=== PATIENT | female | born 1960 | race Caucasian/White ===

== ENCOUNTER 2020-04-23 09:30 | Emergency (ER) | payer OTHER, SELFPAY ==
--- NOTE | ~2020-04-23 | XR_ITS ---
EXAMINATION: XR knee LT min 4V DATE: 04/23/2020 09:58 INDICATION: Left knee pain post injury TECHNIQUE: Anteroposterior, 2 oblique and crosstable lateral views of the affected knee were obtained COMPARISON: None. FINDINGS: Alignment is normal. No fracture. No joint effusion/layering lipohemarthrosis. At least mild tricomp artmental osteoarthritis with small marginal osteophytes in all 3 compartments and mild joint space n arrowing in the medial compartment which could be underestimated on nonweightbearing imaging. Heterot opic ossicle versus loose osteochondral body extends along the cephalad margin of the patella. Multip le subcutaneous varicosities about the knee and extending along the anterior distal thigh. IMPRESSION: 1. No left knee joint effusion or acute osseous abnormality. Reviewed, dictated and finalized at location A. ISHER PLASTICOATER
[2020-04-23 09:36] VITALS: BP 152/91; PULSE 91; RESP 16; TEMP 36.1; O2SAT 99
--- NOTE | 2020-04-23 09:42 | ED.GENADULT ---
HPI - General Adult General Chief complaint: Extremity Injury, Lower Stated complaint: lt knee injury Time Seen by Provider: 04/23/20 09:42 Source: patient Mode of arrival: ambulatory Limitations: no limitations History of Present Illness HPI narrative: 59-year-old female patient presents to the [facility] with complaints of left knee pain. Patient states that she slipped last night going into the house and states she did not fall but states that her left leg kind of went towards the back and she twisted her left knee. Patient states she did take some Josué aspirin last night as well some ibuprofen today for the pain. Patient states she has been able to walk on it but states that causes her to limp. Patient denies any numbness or tingling down to the leg ankle or toes. Related Data Home Medications Medication Instructions Recorded Confirmed No Home Medications 04/23/20 04/23/20 Allergies Allergy/AdvReac Type Severity Reaction Status Date / Time No Known Allergies Allergy Unverified 10/31/16 18:46 Review of Systems Review of Systems: Narrative: CONSTITUTIONAL: Denies fever, chills, or sweats. EYES: Denies visual changes, redness, or discharge. ENT: Denies rhinorrhea, congestion, sore throat, or otalgia. CARDIOVASCULAR: Denies chest pain, palpitations, or edema. RESPIRATORY: Denies cough or dyspnea. GASTROINTESTINAL: Denies abdominal pain, nausea, vomiting, or diarrhea. GENITOURINARY: Denies dysuria or hematuria. SKIN: Denies rash or itching. MUSCULOSKELETAL: Denies back pain, joint pain, or myalgia. Positive left knee pain NEUROLOGIC: Denies headache, numbness, or weakness. PSYCHIATRIC: Denies anxiety or depression. [facility] Surgical History Surgical History (Updated 04/23/20 @ 09:42 by MALCOLM Berry) History of orthopedic surgery Spurs removed from both feet Comments At the time of my signature I agree with nursing past medical history, surgical, social, and family history. There is no relevant family history pertinent to the presenting complaint. Exam Narrative: Exam Narrative: GENERAL: Well-appearing, well-nourished, and in no acute distress. HEAD: Normocephalic, atraumatic. EYES: PERRLA and EOMI. ENT: Nares clear, no rhinorrhea or epistaxis. Mucous membranes moist. NECK: Supple. No lymphadenopathy CHEST: Clear to auscultation. No respiratory distress. HEART: Regular rate and rhythm. No murmur heard. Normal peripheral pulses. ABDOMEN: Soft, nontender, nondistended, normal active bowel sounds. EXTREMITIES: Patient is able to bear weight and ambulate but has limping and pain to the left knee. No surface trauma, STS, or obvious effusion. No overlying erythema or warmth. The L knee is without obvious asymmetry or deformity when compared to the R knee. Patient is able to do deep knee bend with symmetry but has pain with this motion, no pain with fully extend knee, pain with internal rotation and no pain with external rotation. No tendernss to palpation of the patella, no effusion or ballottement. No tenderness over the infrapatellar tendon. No tenderness over the medial or lateral joint lone ot the medial or lateral tibial plateaus. no tenderness over the proximal fibular head. no tenderness, fullness, or mass of the popliteal fossa. No quadriceps tenderness. No laxity of the ACL, PCL, MCL, or LCL. Tenderness noted over the ACL area. No collateral ligament laxity to valgus or vargus stress. Negative matt/drawer sign. Negative Zach. Negative Apley compression and/or distraction. Distal motor and neurovascular status intact. SKIN: Warm, dry, no rash. NEURO: No focal deficits. Alert and oriented x3. Course Reevaluation(s) Reevaluation #1: Reevaluated patient after her x-ray had resulted. Discussed with her that her x-ray does not show any acute fracture or underlying injury at this time. Discussed with her that she does have some osteoarthritis to the knee. Discussed with her I do believe she most li
== END 2020-04-23 10:18 | disposition home or self-care (01) ==
PROVIDERS: Emergency Provider Nurse Practitioner Family
DX: M23.92 Unspecified internal derangement of left knee (principal)
CPT/HCPCS: 73564; 99203; G0463

== ENCOUNTER 2021-06-22 15:47 | Emergency (ER) | payer OTHER, SELFPAY ==
[2021-06-22 15:58] VITALS: BP 129/51; PULSE 91; RESP 18; TEMP 36.4; O2SAT 100
--- NOTE | 2021-06-22 16:00 | ED.SKABFB ---
HPI - Skin/Abscess/Foreign Bdy General Chief complaint: Skin/Abscess/Foreign Body Stated complaint: Rash on back of right leg Time Seen by Provider: 06/22/21 16:00 Source: patient Mode of arrival: ambulatory Limitations: no limitations History of Present Illness HPI narrative: 60-year-old female presents with complaint of redness, warmth, tenderness to right posterior leg. First noticed about 2 days ago. Only injury she remembers is dropping a case of motor oil onto her right lower leg. Did not have any pain at that time. 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 Denies itching. Denies use of new products that may cause allergic reaction. All systems reviewed and negative except as noted above. Related Data Allergies Allergy/AdvReac Type Severity Reaction Status Date / Time No Known Allergies Allergy Verified 06/22/21 15:57 Review of Systems Review of Systems: CONSTITUTIONAL: Denies fever, chills, or sweats. EYES: Denies visual changes, redness, or discharge. ENT: Denies rhinorrhea, congestion, sore throat, or otalgia. CARDIOVASCULAR: Denies chest pain, palpitations, or edema. RESPIRATORY: Denies cough or dyspnea. GASTROINTESTINAL: Denies abdominal pain, nausea, vomiting, or diarrhea. GENITOURINARY: Denies dysuria or hematuria. SKIN: Denies rash or itching. Redness, warmth, tenderness to right posterior leg. MUSCULOSKELETAL: Denies back pain, joint pain, or myalgia. NEUROLOGIC: Denies headache, numbness, or weakness. PSYCHIATRIC: Denies anxiety or depression. All other systems reviewed are negative, except as documented in HPI. [facility] Surgical History Surgical History (Updated 04/23/20 @ 09:42 by MALCOLM Berry) History of orthopedic surgery Spurs removed from both feet Comments At time of signature, agree with nursing past medical, surgical, social and family history. There is no relevant family history pertinent to the presenting complaint. Exam Narrative: GENERAL: This is a well-nourished, well-developed patient, in no apparent distress. HEAD: normocephalic, atraumatic. EYES: PERRL. Sclera clear/white. Vision is grossly intact. EARS: External ears normal. NOSE: External nose normal. THROAT: Mucous membranes moist. NECK: Neck supple, non-tender without lymphadenopathy, masses or thyromegaly. CARDIOVASCULAR: Regular rate and rhythm RESPIRATORY: Clear to auscultation. Breath sounds equal bilaterally. No wheezes, rales, or rhonchi. SKIN: warm, Dry, intact. Erythema, warmth to calf. Skin is intact. No phlebitis noted. No rash noted. NEURO: awake, alert, and oriented to person, place and time. There were no obvious focal neurologic abnormalities. EXTREMITIES: Normal range of motion. Course Course Level of Care: Express Care Visit Vital Signs Vital signs: Vital Signs Temperature 36.4 C 06/22/21 15:58 Pulse Rate 91 06/22/21 15:58 Respiratory Rate 18 06/22/21 15:58 Blood Pressure 129/51 L 06/22/21 15:58 Pulse Oximetry 100 06/22/21 15:58 Temperature 36.4 C 06/22/21 15:58 Pulse Rate 91 06/22/21 15:58 Respiratory Rate 18 06/22/21 15:58 Blood Pressure 129/51 L 06/22/21 15:58 Pulse Oximetry 100 06/22/21 15:58 Reviewed MDM - Skin/Abscess/Foreign Bdy MDM Narrative Medical decision making narrative: Patient is aware of diagnosis, understands and agrees to treatment plan. Anticipatory guidance given. Patient agrees to follow-up as directed and is aware of reasons to seek care at the emergency department. Portions of this record may have been created with voice recognition software Differential Diagnosis Differential diagnosis: Likely abscess of skin or subcutaneous tissue, viral exanthem, urticaria, herpes zoster, cellulitis, eczema, insect bites and contact dermatitis Discharge Plan Discharge Clinical Impression: Cellulitis of right leg Patient Disposition: Home, Self-Care Condition: Stable Instructions:
== END 2021-06-22 16:13 | disposition home or self-care (01) ==
PROVIDERS: Emergency Provider Nurse Practitioner Family
DX: L03.115 Cellulitis of right lower limb (principal)
CPT/HCPCS: 99213; G0463

== ENCOUNTER 2022-04-01 17:15 | Emergency (ER) | payer OTHER, SELFPAY ==
[2022-04-01 17:33] VITALS: BP 142/72; PULSE 78; RESP 18; TEMP 36.2; O2SAT 100
--- NOTE | 2022-04-01 17:56 | ED.URI ---
HPI - URI/Sore Throat General Chief Complaint: Upper Respiratory Infection Stated Complaint: sore throat Time Seen by Provider: 04/01/22 17:40 Source: patient Mode of arrival: ambulatory Limitations: no limitations History of Present Illness HPI Narrative: Rosalee is a 61-year-old female patient presenting to clinic today with complaints of cough x3 days with a sore throat. She reports that the cough is improving but she still has a sore throat. She denies any fever or chills. Has been taking [id number] cough syrup for the cough MD elicited complaint: cough, sore throat and nasal congestion Related Data Home Medications Medication Instructions Recorded Confirmed cetirizine 10 mg tablet (Zyrtec) 10 mg PO DAILY 04/01/22 04/01/22 Allergies Allergy/AdvReac Type Severity Reaction Status Date / Time No Known Allergies Allergy Verified 04/01/22 17:36 Review of Systems Review of Systems: Pertinent positives per HPI. Patient denies any fever, chills, rash, headache, visual changes, dizziness, shortness of breath, chest pain, palpitations, nausea, vomiting, diarrhea, constipation, abdominal pain, or any urinary issues. [facility] Surgical History Surgical History History of orthopedic surgery Spurs removed from both feet Comments At the time of my signature, I reviewed and agree with the nursing past medical, surgical, social, and family history. There is no relevant family history pertinent to the patient complaint. Exam Narrative: General: Well-developed, morbidly obese, in no apparent distress Head: Normocephalic, atraumatic Eyes: Pupils equally round and reactive to light bilaterally, EOM intact, sclera and conjunctive clear, no discharge, lids normal Ears: TMs intact and clear, ear canals clear, no drainage, grossly hearing normal. Nose: Nares patent, clear nasal discharge, mild inflammation, no sinus tenderness. Mouth: Oral pharynx without lesions or masses, good dentition, MMM. oropharynx red, postnasal Neck: Supple, trachea midline, no enlargement of anterior or posterior cervical nodes, no thyroid masses or goiter palpable. Cardio: Regular rate and rhythm, s1 and s2 normal, no murmur appreciated. Resp: Clear to auscultation bilaterally, no rhonchi, rales, wheezing or rubs Course Course Emergency Course: Portions of this record may have been created with voice recognition software. Level of Care: Express Care Visit Vital Signs Vital signs: Vital Signs Temperature 36.2 C L 04/01/22 17:33 Pulse Rate 78 04/01/22 17:33 Respiratory Rate 18 04/01/22 17:33 Blood Pressure 142/72 H 04/01/22 17:33 Pulse Oximetry 100 04/01/22 17:33 Oxygen Delivery Room Air 04/01/22 17:33 Temperature 36.2 C L 04/01/22 17:33 Pulse Rate 78 04/01/22 17:33 Respiratory Rate 18 04/01/22 17:33 Blood Pressure 142/72 H 04/01/22 17:33 Pulse Oximetry 100 04/01/22 17:33 Oxygen Delivery Room Air 04/01/22 17:33 Vital signs reviewed MDM - URI/Sore Throat MDM Narrative Medical decision making narrative: at the time of visit patient is resting comfortably on the exam table. Strep screen was obtained was positive in the clinic today. supportive measures were discussed with the patient she voiced understanding discharge instructions. Prescription for amoxicillin was sent to the pharmacy. Differential Diagnosis Differential diagnosis: Likely upper respiratory infection, otitis media, sinusitis, viral infection, bronchitis, influenza, pharyngitis and other ( COVID) Discharge Plan Discharge Clinical Impression: Strep pharyngitis Patient Disposition: Home, Self-Care Condition: Stable Instructions: Antibiotic Form, Strep Throat (ED) Additional Instructions: strep test was positive in the clinic today. Take medications as prescribed-amoxicillin Increase fluids and stay well hydrated Tylenol/motrin for giana
== END 2022-04-01 18:06 | disposition home or self-care (01) ==
PROVIDERS: Emergency Provider Nurse Practitioner Family
DX: J02.0 Streptococcal pharyngitis (principal)
CPT/HCPCS: 87880; 99213; G0463

== ENCOUNTER 2023-09-03 18:41 | Emergency (ER) | payer OTHER, SELFPAY ==
--- NOTE | ~2023-09-03 | CT_ITS ---
EXAMINATION: CT abdomen pelvis w con DATE: 09/03/2023 20:41 INDICATION: abdominal pain TECHNIQUE: Computed tomography (CT) of the abdomen and pelvis was performed with 100 mL Omnipaque-350 intravenous contrast. Automated exposure control and iterative reconstruction technique were employe d. The dose-length product was 1628.02 mGy-cm. COMPARISON: None. FINDINGS: Lower thorax: Unremarkable Liver: Normal. Biliary/Gallbladder: Cholelithiasis. No inflammatory change No bile duct dilation. Pancreas: No mass or duct dilation. Spleen: Normal. Adrenals:No mass. Kidneys: No suspicious mass, obstructing stone, or hydronephrosis. GI tract: Multiple loops of dilated upper and mid abdominal small bowel with a gradual transition to normal caliber distal small bowel. No pneumatosis. Uniform bowel wall enhancement. Normal appendix. Mesentery/Peritoneum: No ascites, mass, or free air. Retroperitoneum: No mass. Pelvis: Pelvic organs are within normal limits. Soft Tissues: Small fat-containing umbilical hernia with surrounding fat stranding/edema. Bones: No acute osseous finding. IMPRESSION: Dilated proximal and mid small bowel, without a specific transition point. May represent ileus or ear ly/partial obstruction. Small fat-containing umbilical hernia with mild inflammatory change. Reviewed, dictated and finalized at location K. IMPRESSION: Dilated proximal and mid small bowel, without a specific transition point. May represent ileus or early/partial obstruction. Small fat-containing umbilical hernia with mild inflammatory change.
[2023-09-03 18:43] VITALS: BP 153/87; PULSE 101; RESP 20; TEMP 36; O2SAT 99
[2023-09-03 19:28] LABS: Basophils Percent Auto 0.3 % (0.2-1.2); Eosinophils Absolute Auto 0.1 K/mm3 (0-0.3); Eosinophils Percent Auto 1.5 % (0-4.4); Hematocrit 44.5 % (37.0-47.0); Hemoglobin 14.4 g/dL (12.0-15.0); Immature Granulocyte Absolute 0.02 K/mm3 (0.00-0.031); Immature Granulocyte Percent A 0.3 % (0-0.5); Immature Platelet Fraction Pct 12.4 % (0.9-11.2); Lymphocytes Absolute Auto 1.32 K/mm3 (0.9-3.2); Lymphocytes Percent Auto 18.1 % (18.3-44.2); Mean Corpuscular HGB Conc 32.4 g/dl (32-36); Mean Corpuscular Hemoglobin 30.3 pg (26-34); Mean Corpuscular Volume 93.5 fl (80-100); Mean Platelet Volume 12.3 fl (7.4-10.4); Monocytes Absolute Auto 0.7 K/mm3 (0.1-0.6); Monocytes Percent Auto 9.1 % (2.6-8.5); Neutrophils Absolute Auto 5.2 K/mm3 (1.3-6.7); Neutrophils Percent Auto 70.7 % (45.5-73.1); Platelet Count Result 141 k/mm3 (150-375); Red Blood Count 4.76 M/mm3 (4.2-5.4); Red Cell Distribution Width 14.5 % (11.5-14.5); White Blood Count 7.3 K/mm3 (4.5-10.0)
[2023-09-03 19:36] LABS: Lactic Acid Reflex 1.1 mmol/L (0.7-2.0)
[2023-09-03 19:38] LABS: Alanine Aminotransferase 50 U/L (6-35); Albumin Level 4.4 g/dL (3.5-5.1); Alkaline Phosphatase 112 U/L (38-126); Anion Gap 7 mmol/L (4-12); Aspartate Amino Transferase 53 U/L (14-36); Bilirubin,Total 2.4 mg/dL (0.2-1.3); Blood Urea Nitrogen 18 mg/dL (7-17); Calcium 9.4 mg/dL (8.4-10.2); Carbon Dioxide 29 mmol/L (22-30); Chloride 104 mmol/L (98-107); Estimated CRCL calculation 71 ml/min; Estimated Glomerular Filt Rate 57; Glucose 124 mg/dL (65-110); INR 1.3; Lipase 46 U/L (23-300); Potassium 3.7 mmol/L (3.4-5.0); Prothrombin Time 16.1 Seconds (11.1-14.7); Sodium 140 mmol/L (137-145)
[2023-09-03 19:39] LABS: Partial Thromboplastin Time 25.2 Seconds (22.3-36.8)
[2023-09-03 19:48] LABS: Troponin I < 0.012 ng/mL (0.000-0.034)
--- NOTE | 2023-09-03 21:05 | ED.ABDPAIN ---
HPI - Abdominal Pain General Chief Complaint: Abdominal Pain Stated Complaint: abdmonial pain, vomoiting Time Seen by Provider: 09/03/23 18:48 History of Present Illness HPI narrative: 62-year-old female presents emergency department for evaluation of gastritis and heartburn. Patient states pain was worsened after eating. Patient denies any prior history of abdominal surgeries. Patient denies any recent coughs colds fever. Patient denies any prior history of [place]. Related Data Home Medications Medication Instructions Recorded Confirmed cetirizine 10 mg tablet (Zyrtec) 10 mg PO DAILY 04/01/22 04/01/22 Allergies Allergy/AdvReac Type Severity Reaction Status Date / Time No Known Allergies Allergy Verified 09/03/23 18:48 Review of Systems Review of Systems: All systems reviewed & are unremarkable except as noted in HPI and below PMFSH Surgical History Surgical History History of orthopedic surgery Spurs removed from both feet Exam Narrative: APPEARANCE: Well appearing, no pain, no distress, well-nourished. HEAD: normocephalic, atraumatic. EYES: PERRLA/EOMI, conjunctivae clear. NOSE: Normal no drainage EARS:TMS clear with good light reflex. THROAT: Pharynx clear, no exudate. NECK: Supple. No adenopathy, no masses. RESPIRATORY: Airway patent, respirations nonlabored. Clear to auscultation bilaterally, no rales, rhonchi, wheezing. CARDIOVASCULAR: Regular rate and rhythm without murmurs rubs or gallops. ABDOMINAL: Soft, nontender, nondistended, normal bowel sounds MUSCULOSKELETAL: Moves all extremities. Strength/ROM intact, No edema, No calf tenderness. NEURO: Alert. Cranial nerves II through XII intact. grossly intact SKIN: Warm, dry. Normal Color Course Vital Signs Vital signs: Vital Signs Temperature 96.8 F L 09/03/23 18:43 Pulse Rate 101 H 09/03/23 18:43 Respiratory Rate 20 09/03/23 18:43 Blood Pressure 153/87 H 09/03/23 18:43 Pulse Oximetry 99 09/03/23 18:43 Oxygen Delivery Room Air 09/03/23 18:43 Temperature 96.8 F L 09/03/23 18:43 Pulse Rate 101 H 09/03/23 18:43 Respiratory Rate 20 09/03/23 18:43 Blood Pressure 153/87 H 09/03/23 18:43 Pulse Oximetry 99 09/03/23 18:43 Oxygen Delivery Room Air 09/03/23 18:43 MDM - Abdominal Pain MDM Narrative Medical decision making narrative: 62-year-old female presents emergency department for evaluation of epigastric pain. Patient is afebrile with no leukocytosis and a stable hemoglobin. Patient has no elevation of her lactic acid, lipase. Mild elevation in bilirubin AST and ALT. This may be secondary to hepatic steatosis. Patient has no right upper quadrant tenderness to palpation. CT scan was concerning for partial obstruction versus ileus. Patient is symptom-free at this time. Differential Diagnosis Differential diagnosis: Likely abdominal pain, constipation, gastroenteritis, pancreatitis and small bowel obstruction Lab Data Attestation: I reviewed the patient's lab results. 09/03/23 19:15 09/03/23 19:15 Labs: Lab Results 09/03/23 Range/Units 19:15 WBC 7.3 (4.5-10.0) K/mm3 RBC 4.76 (4.2-5.4) M/mm3 Hgb 14.4 (12.0-15.0) g/dL Hct 44.5 (37.0-47.0) % MCV 93.5 (80-100) fl MCH 30.3 (26-34) pg MCHC 32.4 (32-36) g/dl RDW 14.5 (11.5-14.5) % Plt Count 141 L (150-375) k/mm3 MPV 12.3 H (7.4-10.4) fl Immature Gran % (Auto) 0.3 (0-0.5) % Neut % (Auto) 70.7 (45.5-73.1) % Lymph % (Auto) 18.1 L (18.3-44.2) % [place] % (Auto) 9.1 H (2.6-8.5) % Eos % (Auto) 1.5 (0-4.4) % Baso % (Auto) 0.3 (0.2-1.2) % Lymph # (Auto) 1.32 (0.9-3.2) K/mm3 [place] # (Auto) 0.7 H (0.1-0.6) K/mm3 Eos # (Auto) 0.1 (0-0.3) K/mm3 Baso # (Auto) 0.0 (0.0-0.1) K/mm3 Abs Immat Gran (auto) 0.02 (0.00-0.031) K/mm3 Absolute Neuts (auto) 5.2 (1.3-6.7) K/mm3 Absolute Nucleated RBC 0.000 (0.
== END 2023-09-03 21:22 | disposition home or self-care (01) ==
PROVIDERS: Emergency Provider Emergency Medicine
DX: R10.13 Epigastric pain (principal); R93.3 Abnormal findings on diagnostic imaging of other parts of digestive tract; K42.9 Umbilical hernia without obstruction or gangrene
CPT/HCPCS: 36415; 74177; 80053; 83605; 83690; 84484; 85025; 85055; 85610; 85730; 99284; Q9967

== ENCOUNTER 2023-09-10 10:17 | Outpatient (CLI) | payer OTHER, SELFPAY ==
[2023-09-10 11:22] LABS: Appearance Urine Cloudy (Clear); Bacteria Urine 2+ /hpf; Bilirubin Urine Negative (Negative); Blood Urine Negative (Negative); Color Urine Yellow (Yellow); Glucose Urine UA Negative (Negative); Ketones Urine 1+ mg/dL (Negative); Leukocyte Esterase Ur Trace LEU/UL (Negative); Need Manual Microscopic Reviewed; Nitrate Urine Negative (Negative); Non Pathogenic Casts 0-2; Protein Urine Trace mg/dL (Negative); RBC Urine 0-2 /hpf (0-2); Specific Grav Ur 1.026 (1.001-1.035); Squamous Epithelial Cell Urine Many /hpf (Few)
[2023-09-10 11:24] LABS: Add Urine Microscopic? YES
[2023-09-10 11:25] LABS: Hematocrit 45.7 % (37.0-47.0); Hemoglobin 14.4 g/dL (12.0-15.0); Immature Platelet Fraction Pct 12.5 % (0.9-11.2); Mean Corpuscular HGB Conc 31.5 g/dl (32-36); Mean Corpuscular Hemoglobin 29.9 pg (26-34); Mean Corpuscular Volume 94.8 fl (80-100); Mean Platelet Volume 13.9 fl (7.4-10.4); Platelet Count Result 167 k/mm3 (150-375); Red Blood Count 4.82 M/mm3 (4.2-5.4); Red Cell Distribution Width 14.2 % (11.5-14.5); White Blood Count 10.8 K/mm3 (4.5-10.0)
[2023-09-10 11:30] LABS: MALB Creatinine Ratio 5.4 mg/g (0-30); Microalbumin Urine Random 12.1 mg/L (0-16.7)
[2023-09-10 11:34] LABS: Cholesterol 103 mg/dL (0-200); HDL Direct 28 mg/dL; Triglycerides 89 mg/dL (<150)
[2023-09-10 11:52] LABS: LDL Cholesterol Direct 65 mg/dL
[2023-09-10 12:06] LABS: Free T4 Free Thyroxine 1.09 ng/mL (0.78-2.19)
[2023-09-10 12:32] LABS: Hepatitis B Surface Antigen Negative (Negative)
[2023-09-10 12:38] LABS: HAV RESULT Negative (Negative); Hepatitis B Core IgM Result Negative (Negative)
[2023-09-10 12:50] LABS: Hepatitis C Virus Antibody Negative (Negative)
[2023-09-10 13:01] LABS: Hemoglobin A1C 5.5 % (<5.7)
== END 2023-09-10 10:18 | disposition home or self-care (01) ==
LOC: ANHLAB 10:19
PROVIDERS: Visit Provider Emergency Medicine
DX: R79.89 Other specified abnormal findings of blood chemistry (principal); R94.5 Abnormal results of liver function studies; Z00.00 Encounter for general adult medical examination without abnormal findings
CPT/HCPCS: 36415; 80061; 80074; 81001; 82043; 83036; 84439; 84443; 85027; 85055

== ENCOUNTER 2023-12-26 17:11 | Emergency (ER) | payer OTHER, SELFPAY | END 2023-12-26 17:40 | disposition left against medical advice (07) | LOC: EXPCOLL 17:14 | PROVIDERS: Emergency Provider Nurse Practitioner | DX: Z53.21 Procedure and treatment not carried out due to patient leaving prior to being seen by health care provider (principal) | CPT/HCPCS: 99199 ==

== ENCOUNTER 2024-01-28 19:42 | Emergency (ER) | payer OTHER, SELFPAY ==
[2024-01-28 19:50] VITALS: BP 152/79; PULSE 86; RESP 20; TEMP 36.6; O2SAT 100
--- NOTE | 2024-01-28 19:58 | ED_ITS ---
HPI - Skin/Abscess/Foreign Bdy General Chief complaint: Skin/Abscess/Foreign Body Stated complaint: Left Hand Middle Finger Pain Time Seen by Provider: 01/28/24 19:58 Source: patient, RN notes reviewed and old records reviewed Mode of arrival: ambulatory Limitations: no limitations History of Present Illness HPI narrative: Patient presents with complaints of pain swelling around the nail of the left 3rd finger. Patient admits that she bites her fingernails, states that the left 3rd finger has been tender and swollen around the nail for 2 or 3 days, getting worse. She denies any fever, chills, sweats. She denies any injury or trauma. She retains full motion of the affected digit. She has not taken anything for her symptoms. She voices no other concerns or complaints today. Related Data Home Medications Medication Instructions Recorded Confirmed cetirizine 10 mg tablet (Zyrtec) 10 mg PO DAILY 04/01/22 01/28/24 Allergies Allergy/AdvReac Type Severity Reaction Status Date / Time No Known Allergies Allergy Verified 01/28/24 20:04 Review of Systems Review of Systems: All systems reviewed & are unremarkable except as noted in HPI and below Constitutional: Constitutional: Reports no additional constitutional complaints ENT: Reports system reviewed and no additional complaints, except as documented Cardiovascular: Cardiovascular: Reports no additional cardiovascular complaints Respiratory: Respiratory: Reports no additional respiratory complaints Gastrointestinal: Gastrointestinal: Reports no additional gastrointestinal complaints Integumentary/Breasts: Skin/Breast: Reports system reviewed and no additional complaints, except as docu and Reports as per HPI [facility] Surgical History Surgical History History of orthopedic surgery Spurs removed from both feet Comments At the time of my signature, I reviewed and agree with the nursing past medical, surgical, social, and family history. There is no relevant family history pertinent to the patient complaint. Exam Const: General: cooperative, no acute distress, alert and awake Orientation/consciousness: oriented to person, oriented to place and oriented to time HENMT: Head: normal to inspection Resp: Effort & Inspection: normal respiratory effort and able to speak in complete sentences Auscultation: clear to auscultation bilaterally, no crackles, no rales, no rhonchi and no wheezes Cardio: Palpation: normal PMI Rate: regular rate Rhythm: regular rhythm Heart sounds: S1 normal heart sound present and S2 normal heart sound present Skin: Nails: other (Redness and swelling surrounding the nail of left 3rd digit, pustule noted) Neuro: General: oriented to person, oriented to place and oriented to time Cranial nerves: Yes CN's II-XII intact bilaterally Psych: Appearance: grossly normal Thought process: Normal thought process present Insight: Good insight present (Psych) Judgement: Good judgement present (Psych) Course Course Level of Care: Express Care Visit Vital Signs Vital signs: Vital Signs Temperature 97.8 F 01/28/24 19:50 Pulse Rate 86 01/28/24 19:50 Respiratory Rate 20 01/28/24 19:50 Blood Pressure 152/79 H 01/28/24 19:50 Pulse Oximetry 100 01/28/24 19:50 Oxygen Delivery Room Air 01/28/24 19:50 Temperature 97.8 F 01/28/24 19:50 Pulse Rate 86 01/28/24 19:50 Respiratory Rate 20 01/28/24 19:50 Blood Pressure 152/79 H 01/28/24 19:50 Pulse Oximetry 100 01/28/24 19:50 Oxygen Delivery Room Air 01/28/24 19:50 Reviewed Procedures Other Procedure Procedure 1: Other Procedure: Drainage of paronychia, left 3rd digit. Cleansed with alcohol wipe, opened with 18 gauge needle. Purulent material drained, approximately 4-5 cc MDM - Skin/Abscess/Foreign Bdy MDM Narrative Medical decision making narrative: Paronychia to left 3rd digit drained with 18 gauge needle, no complications. This patient is nontoxic appearing. Discharge home with p.o. antibiotics, warm soaks 3 times daily to encourage further drainage. Emergency department for new or worse symptoms. Discharge instructions reviewed with patient, as well as provided in writing per nursing staff. The instructions also include specific and strict return/GO TO THE ER as well as f/u information. All questions have been answered, and the patient deny any further questions with discharge and discharge plan. Some parts of this dictation were generated by voice recognition software and may contain typographical and/or grammatical inaccuracies. Differential Diagnosis Differential diagnosis: Likely abscess of skin or subcutaneous tissue and cellulitis Medical Records Attestation: I reviewed the patient's medical records. Discharge Plan Discharge Clinical Impression: Paronychia, Elevated blood pressure reading Patient Disposition: Home, Self-Care Condition: Stable Instructions: Antibiotic Form, Paronychia (ED) Additional Instructions: Take all medications as prescribed, warm soaks to affected finger 3-4 times daily to encourage drainage. Do not poke or squeeze affected area. Follow with primary care provider, emergency department for new or worse symptoms. Prescriptions: New amoxicillin-pot clavulanate 875-125 mg tablet 1 tablet PO Q12H Qty: 14 0RF No Action cetirizine [Zyrtec] 10 mg Tablet 10 mg PO DAILY Follow-up/Referrals: [facility],Healthcare [Primary Care Provider] - Time of Disposition: 20:06
== END 2024-01-28 20:10 | disposition home or self-care (01) ==
PROVIDERS: Emergency Provider Nurse Practitioner Family
DX: L03.012 Cellulitis of left finger (principal); R03.0 Elevated blood-pressure reading, without diagnosis of hypertension
CPT/HCPCS: 10060; 99213; G0463